=== PATIENT | female | born 1990 | race Caucasian/White ===

== ENCOUNTER 2019-09-03 15:47 | Inpatient (IN) | payer MEDICAID ==
[~2019-09-03] VITALS: Ht 167.6 cm; Wt 136.4 kg
[~2019-09-03 15:47] MED LIST: DOCU-131 PO; FERR325T18 PO; IBUP-1223 PO; OXYC-302 PO; PREN1TAB56 PO
[2019-09-10 09:26] VITALS: BP 114/75
[2019-09-10] MEDS ORDERED: METOCLOPRAMIDE 5 MG/ML, 2ML IV ONE (09:30)
[2019-09-10] MEDS ORDERED: SODIUM CITRATE/CITRIC ACID 30 ML UDC PO ONE (09:30)
[2019-09-10] MEDS ORDERED: LACTATED RINGERS 1,000 ML IVBOLUS ONE (09:30)
[2019-09-10 09:38] LABS: BASOPHILS # (AUTO) 0.03 x10^3/uL (0-0.1); BASOPHILS % (AUTO) 0 % (0-1); EOSINOPHILS # (AUTO) 0.04 x10^3/uL (0-0.4); EOSINOPHILS % (AUTO) 0 % (1-7); LYMPHOCYTES # (AUTO) 2.35 x10^3/uL (1-3.4); LYMPHOCYTES % (AUTO) 21 % (22-44); MD NO; MEAN CORPUSCULAR HEMOGLOBIN 29.6 pg (27.0-34.8); MEAN CORPUSCULAR HGB CONC 33.1 g/dL (32.4-35.8); MEAN CORPUSCULAR VOLUME 89.2 fL (80-100); MEAN PLATELET VOLUME 8.8 fL (7.4-10.4); MONOCYTES # (AUTO) 0.67 x10^3/uL (0.2-0.8); MONOCYTES % (AUTO) 6 % (2-9); NEUTROPHILS # (AUTO) 8.39 x10^3/uL (1.8-6.8); NEUTROPHILS % (AUTO) 73 % (42-75); PLATELET COUNT 225 x10^3/uL (130-400); RED BLOOD COUNT 4.31 x10^6/uL (3.82-5.3); RED CELL DISTRIBUTION WIDTH 16.2 % (9.6-15.2)
[2019-09-10] MEDS ORDERED: DOXY1TAB3 PO (10:02)
[2019-09-10] MEDS ORDERED: ACET325C6 PO (10:02)
[2019-09-10] MEDS ORDERED: morphine SULFATE/PF 0.5 MG/ML, 10ML ONE (10:03)
[2019-09-10] MEDS: LACTATED RINGERS 1,000 ML IV SCH ×5 (10:06→21:21)
[2019-09-10] MEDS ORDERED: EPINEPHRINE 1 MG/ML, 1ML ONE (10:12)
[2019-09-10] MEDS ORDERED: METOCLOPRAMIDE 5 MG/ML, 2ML ONE (10:16)
[2019-09-10] MEDS ORDERED: NEWBORN KIT ONE (10:16)
[2019-09-10] MEDS ORDERED: SODIUM CITRATE/CITRIC ACID 30 ML UDC ONE (10:16)
[2019-09-10] MEDS ORDERED: OXYTOCIN 30U/ 0.9% NaCL 500ML 500 ML ONE (10:16)
[2019-09-10] MEDS ORDERED: MIDAZOLAM 1 MG/ML, 2ML ONE (11:12)
[2019-09-10] MEDS ORDERED: PHENYLEPHRINE 10 MG/ML ONE (11:13)
[2019-09-10] MEDS ORDERED: OXYTOCIN 10 UNITS/ML, 1ML ONE (11:13)
[2019-09-10] MEDS ORDERED: CEFAZOLIN 1,000 MG ONE ×2 (11:13→11:17)
[2019-09-10] MEDS ORDERED: ONDANSETRON 2MG/ML, 2ML ONE ×2 (11:13→14:25)
[2019-09-10] MEDS ORDERED: WATER-INJECTION,STERILE 10 ML IV ONE (11:13)
[2019-09-10] MEDS ORDERED: EPHEDRINE 50 MG/ML, 1ML ONE (11:13)
[2019-09-10] MEDS ORDERED: MEPERIDINE/PF 50 MG/ML ONE (11:40)
[2019-09-10] MEDS ORDERED: LACTATED RINGERS 1,000 ML IV SCH (12:17)
[2019-09-10] MEDS ORDERED: OXYcodone 5 MG/5 ML ORAL.SOL UDC ONE (12:26)
[2019-09-10] MEDS ORDERED: KETOROLAC 30 MG/1 ML ONE (12:26)
[2019-09-10] MEDS ORDERED: TRANEXAMIC ACID 100 MG/ML, 10ML IV ONE (12:30)
[2019-09-10] MEDS ORDERED: ONDANSETRON 2MG/ML, 2ML IV PRN (12:30)
[2019-09-10] MEDS ORDERED: HYDROmorphone/PF 10 MG/ML, 1ML IVPush PRN (12:30)
[2019-09-10] MEDS ORDERED: KETOROLAC 30 MG/1 ML IVPush PRN (12:30)
[2019-09-10] MEDS ORDERED: METHYLERGONOVINE 0.2 MG/ML IM PRN (12:30)
[2019-09-10] MEDS ORDERED: morphine SULFATE 10 MG/ML, 1ML IVPush PRN (12:30)
[2019-09-10] MEDS ORDERED: OXYcodone IR 5MG TABLET PO PRN (12:30)
[2019-09-10] MEDS ORDERED: OXYcodone/APAP 5/325MG TABLET PO PRN (12:30)
[2019-09-10] MEDS ORDERED: CALCIUM CARBONATE 500 MG TAB.CHEW PO PRN (12:30)
[2019-09-10] MEDS ORDERED: NALOXONE 0.4 MG/ML, 1ML IVPush PRN (12:30)
[2019-09-10] MEDS ORDERED: IBUPROFEN 800 MG TABLET PO PRN (12:30)
[2019-09-10] MEDS ORDERED: ACETAMINOPHEN 325 MG TABLET PO PRN ×2 (12:30)
[2019-09-10] MEDS ORDERED: DIPHENHYDRAMINE 50 MG/ML, 1ML IVPush PRN (12:30)
[2019-09-10] MEDS: KETOROLAC 30 MG/1 ML IV SCH ×3 (12:34→23:54)
[2019-09-10] MEDS: OXYTOCIN 30U/ 0.9% NaCL 500ML 500 ML IV SCH ×3 (12:44→22:43)
[2019-09-10] MEDS ORDERED: MISOPROSTOL 200 MCG TABLET ONE (12:52)
[2019-09-10] MEDS ORDERED: MISOPROSTOL 200 MCG TABLET PR ONE (13:00)
[2019-09-10] MEDS ORDERED: OXYcodone 5 MG/5 ML ORAL.SOL UDC PO PRN ×2 (13:00)
[2019-09-10] MEDS ORDERED: HYDROmorphone 2 MG/ML, 1ML ONE ×2 (13:02→14:27)
[2019-09-10] MEDS ORDERED: HYDROmorphone 1 MG/ML, 1ML INJ IV ONE (13:30)
[2019-09-10] MEDS ORDERED: METHYLERGONOVINE 0.2 MG/ML IM ONE (13:33)
[2019-09-10] MEDS ORDERED: TRANEXAMIC ACID 100 MG/ML, 10ML ONE (13:34)
[2019-09-10] MEDS ORDERED: CARBOPROST TROMETHAMINE 250 MCG/ML, 1ML IM ONE ×2 (14:07→14:30)
[2019-09-10] MEDS ORDERED: DIPHENHYDRAMINE 50 MG/ML, 1ML ONE (14:25)
[2019-09-10 14:26] LABS: BASOPHILS # (AUTO) 0.04 x10^3/uL (0-0.1); BASOPHILS % (AUTO) 0 % (0-1); EOSINOPHILS # (AUTO) 0.01 x10^3/uL (0-0.4); EOSINOPHILS % (AUTO) 0 % (1-7); LYMPHOCYTES # (AUTO) 1.61 x10^3/uL (1-3.4); LYMPHOCYTES % (AUTO) 13 % (22-44); MD NO; MEAN CORPUSCULAR HEMOGLOBIN 29.3 pg (27.0-34.8); MEAN CORPUSCULAR HGB CONC 32.9 g/dL (32.4-35.8); MEAN CORPUSCULAR VOLUME 89.2 fL (80-100); MEAN PLATELET VOLUME 8.2 fL (7.4-10.4); MONOCYTES # (AUTO) 0.56 x10^3/uL (0.2-0.8); MONOCYTES % (AUTO) 5 % (2-9); NEUTROPHILS # (AUTO) 9.77 x10^3/uL (1.8-6.8); NEUTROPHILS % (AUTO) 82 % (42-75); PLATELET COUNT 198 x10^3/uL (130-400); RED BLOOD COUNT 3.96 x10^6/uL (3.82-5.3)
[2019-09-10] MEDS ORDERED: DIPHENHYDRAMINE 50 MG/ML, 1ML IVPush ONE (14:30)
[2019-09-10] MEDS ORDERED: ONDANSETRON 2MG/ML, 2ML IVPush ONE (14:30)
[2019-09-10] MEDS: HYDROmorphone 1 MG/ML, 1ML INJ IV PRN ×2 (14:35→14:46)
[2019-09-10 15:14] LABS: INTERNATIONAL NORMALIZED RATIO 0.98 (0.93-1.1); PROTHROMBIN TIME 10.3 Seconds (9.6-11.5)
[2019-09-10 17:00] VITALS: BP 116/51
[2019-09-10] MEDS: OXYcodone/APAP 5/325MG TABLET PO PRN ×2 (17:55→22:09)
[2019-09-10 19:05] VITALS: BP 116/76
[2019-09-10 19:33] LABS: BASOPHILS # (AUTO) 0.05 x10^3/uL (0-0.1); BASOPHILS % (AUTO) 0 % (0-1); EOSINOPHILS % (AUTO) 2 % (1-7); LYMPHOCYTES % (AUTO) 16 % (22-44); MD NO; MEAN CORPUSCULAR HEMOGLOBIN 30.1 pg (27.0-34.8); MEAN CORPUSCULAR HGB CONC 33.5 g/dL (32.4-35.8); MEAN CORPUSCULAR VOLUME 89.9 fL (80-100); MEAN PLATELET VOLUME 8.6 fL (7.4-10.4); MONOCYTES # (AUTO) 0.71 x10^3/uL (0.2-0.8); MONOCYTES % (AUTO) 6 % (2-9); NEUTROPHILS # (AUTO) 8.86 x10^3/uL (1.8-6.8); NEUTROPHILS % (AUTO) 76 % (42-75); PLATELET COUNT 187 x10^3/uL (130-400); RED BLOOD COUNT 3.65 x10^6/uL (3.82-5.3); RED CELL DISTRIBUTION WIDTH 16.4 % (9.6-15.2)
[2019-09-10] MEDS ORDERED: DIPH,PERTUSS(ACELL),TET VAC/PF NC IM-VACC ONE (22:30)
[2019-09-10 23:39] VITALS: BP 91/58
[2019-09-11] MEDS: OXYcodone/APAP 5/325MG TABLET PO PRN ×5 (01:42→21:15)
[2019-09-11 05:00] VITALS: BP 96/65
[2019-09-11] MEDS: KETOROLAC 30 MG/1 ML IV SCH ×3 (05:41→19:45)
[2019-09-11 07:30] VITALS: BP 101/69
[2019-09-11] MEDS: DOCUSATE 100 MG CAPSULE PO PRN ×2 (08:02→19:46)
[2019-09-11] MEDS: PRENATAL VIT/IRON/FA 1 EACH TABLET PO SCH (08:02)
[2019-09-11] MEDS: SIMETHICONE 80 MG CHEW TAB PO PRN ×3 (08:02→19:45)
[2019-09-11 19:45] VITALS: BP 106/71
[2019-09-12] MEDS: OXYcodone/APAP 5/325MG TABLET PO PRN ×2 (01:22→12:42)
[2019-09-12] MEDS: KETOROLAC 30 MG/1 ML IV SCH ×2 (01:22→07:32)
[2019-09-12] MEDS: SIMETHICONE 80 MG CHEW TAB PO PRN (01:22)
[2019-09-12] MEDS: LACTATED RINGERS 1,000 ML IV SCH ×2 (04:17→12:17)
[2019-09-12] MEDS: OXYTOCIN 30U/ 0.9% NaCL 500ML 500 ML IV SCH ×2 (04:17→14:17)
[2019-09-12 07:30] VITALS: BP 106/72
[2019-09-12] MEDS: DOCUSATE 100 MG CAPSULE PO PRN (07:32)
[2019-09-12] MEDS: PRENATAL VIT/IRON/FA 1 EACH TABLET PO SCH (07:32)
[2019-09-12] MEDS ORDERED: IBUP-1223 PO (13:29)
[2019-09-12] MEDS ORDERED: OXYC-302 PO (13:29)
== END 2019-09-12 15:17 | disposition home or self-care (01) | DRG 540 ==
LOC: LDIP 09-10 08:44 → 2NW 09-10 15:32
PROVIDERS: ADMIT Obstetrics & Gynecology; ATTEND Obstetrics & Gynecology
PROC: 10D00Z1 Extraction of Products of Conception, Low, Open Approach (ICD-10-PCS; principal; 2019-09-10)
DX: O34.211 Maternal care for low transverse scar from previous cesarean delivery (principal); E66.01 Morbid (severe) obesity due to excess calories; Z37.0 Single live birth; O48.0 Post-term pregnancy; O77.0 Labor and delivery complicated by meconium in amniotic fluid; O99.214 Obesity complicating childbirth; Z3A.41 41 weeks gestation of pregnancy; Z91.048 Other nonmedicinal substance allergy status
CPT/HCPCS: 36415; 85025; 85384; 85610; 85730; 86850; 86900; 90715; G0378; J0171; J0690; J1170; J1885; J2175; J2250; J2274; J2405; J1200; J2210; J2370; J2590; J2765; J7120

== ENCOUNTER 2021-03-08 06:14 | Inpatient (IN) | payer MEDICAID ==
[~2021-03-08] VITALS: Ht 167.6 cm; Wt 150.0 kg
[~2021-03-08 06:14] MED LIST changes: +ACET325C6 PO; +DOXY1TAB3 PO; -OXYC-302 PO; +OXYC1TAB14 PO
[2021-03-10] MEDS ORDERED: NEWBORN KIT ONE (10:59)
[2021-03-10] MEDS ORDERED: LACTATED RINGERS 1,000 ML IVBOLUS ONE ×2 (11:00→15:00)
[2021-03-10] MEDS ORDERED: METOCLOPRAMIDE 5 MG/ML, 2ML IV ONE (11:00)
[2021-03-10] MEDS ORDERED: SODIUM CITRATE/CITRIC ACID 30 ML UDC PO ONE (11:00)
[2021-03-10] MEDS ORDERED: SODIUM CITRATE/CITRIC ACID 15 ML UDC ONE (11:08)
[2021-03-10] MEDS ORDERED: OXYTOCIN 30U/ 0.9% NaCL 500ML 500 ML ONE (11:08)
[2021-03-10] MEDS ORDERED: METOCLOPRAMIDE 5 MG/ML, 2ML ONE (11:08)
[2021-03-10] MEDS ORDERED: HYDR50CA PO (11:20)
[2021-03-10] MEDS ORDERED: ALBUTEROL SULFATE 2.5 MG/3 ML NPPB PRN (11:30)
[2021-03-10] MEDS ORDERED: ONDANSETRON 2MG/ML, 2ML IVPush PRN (11:30)
[2021-03-10] MEDS ORDERED: FENTANYL PF 100 MCG/2ML IV PRN (11:30)
[2021-03-10] MEDS ORDERED: ACETAMINOPHEN 325 MG TABLET PO PRN (11:30)
[2021-03-10] MEDS ORDERED: OXYcodone 5 MG/5 ML ORAL.SOL UDC PO PRN ×2 (11:30→17:00)
[2021-03-10] MEDS ORDERED: morphine SULFATE 10 MG/ML, 1ML IVPush PRN (11:30)
[2021-03-10] MEDS ORDERED: PROMETHAZINE 25 MG/ML, 1ML IVPush PRN (11:30)
[2021-03-10] MEDS ORDERED: MEPERIDINE/PF 25MG/0.5ML IVPush PRN (11:30)
[2021-03-10] MEDS ORDERED: EPHEDRINE 50 MG/ML, 1ML IVPush PRN (11:30)
[2021-03-10 11:36] VITALS: BP 119/76
[2021-03-10 11:37] LABS: BASOPHILS % (AUTO) 1 % (0-1); EOSINOPHILS % (AUTO) 0 % (1-7); LYMPHOCYTES % (AUTO) 21 % (22-44); MEAN CORPUSCULAR HEMOGLOBIN 29.2 pg (27.0-34.8); MEAN CORPUSCULAR HGB CONC 32.9 g/dL (32.4-35.8); MONOCYTES % (AUTO) 6 % (2-9); NEUTROPHILS % (AUTO) 72 % (42-75); PLATELET COUNT 224 x10^3/uL (130-400); RED BLOOD COUNT 4.01 x10^6/uL (3.82-5.3); RED CELL DISTRIBUTION WIDTH 16.1 % (9.6-15.2)
[2021-03-10 11:38] LABS: MD NO
[2021-03-10] MEDS ORDERED: MISOPROSTOL 200 MCG TABLET PR ONE (13:00)
[2021-03-10] MEDS: LACTATED RINGERS 1,000 ML IV SCH ×3 (15:00→23:00)
[2021-03-10] MEDS ORDERED: METHYLERGONOVINE 0.2 MG/ML IM PRN (15:00)
[2021-03-10] MEDS ORDERED: ONDANSETRON 2MG/ML, 2ML IV PRN (15:00)
[2021-03-10] MEDS ORDERED: morphine SULFATE 10 MG/ML, 1ML IM PRN (15:00)
[2021-03-10] MEDS ORDERED: LORazepam 2 MG/ML, 1ML IVPush PRN ×2 (15:30→16:00)
[2021-03-10] MEDS ORDERED: KETOROLAC 30 MG/1 ML ONE (15:38)
[2021-03-10] MEDS ORDERED: KETOROLAC 30 MG/1 ML IVPush SCH (16:00)
[2021-03-10] MEDS ORDERED: KETOROLAC 30 MG/1 ML IVPush ONE (16:30)
[2021-03-10 16:55] VITALS: BP 127/89
[2021-03-10] MEDS: OXYTOCIN 30U/ 0.9% NaCL 500ML 500 ML IV SCH (16:59)
[2021-03-10] MEDS: OXYcodone IR 5MG TABLET PO PRN ×2 (17:39→21:01)
[2021-03-10] MEDS: ACETAMINOPHEN 325 MG TABLET PO PRN ×2 (17:39→21:01)
[2021-03-10] MEDS ORDERED: DIAZEPAM 5 MG/ML, 2ML IV PRN (18:30)
[2021-03-10 19:41] VITALS: BP 114/81
[2021-03-10] MEDS: DOCUSATE 100 MG CAPSULE PO PRN (21:01)
[2021-03-10] MEDS: SIMETHICONE 80 MG CHEW TAB PO PRN (21:01)
[2021-03-10 21:37] LABS: BASOPHILS % (AUTO) 0 % (0-1); EOSINOPHILS % (AUTO) 0 % (1-7); LYMPHOCYTES % (AUTO) 17 % (22-44); MEAN CORPUSCULAR HEMOGLOBIN 30.1 pg (27.0-34.8); MEAN CORPUSCULAR HGB CONC 33.8 g/dL (32.4-35.8); MEAN PLATELET VOLUME 8.7 fL (7.4-10.4); MONOCYTES % (AUTO) 7 % (2-9); NEUTROPHILS % (AUTO) 76 % (42-75); PLATELET COUNT 197 x10^3/uL (130-400); RED BLOOD COUNT 2.83 x10^6/uL (3.82-5.3); RED CELL DISTRIBUTION WIDTH 15.8 % (9.6-15.2)
[2021-03-10 21:44] LABS: MD NO
[2021-03-10] MEDS: KETOROLAC 30 MG/1 ML IVPush SCH (21:51)
[2021-03-11] MEDS: LACTATED RINGERS 1,000 ML IV SCH ×6 (01:00→23:00)
[2021-03-11] MEDS: OXYTOCIN 30U/ 0.9% NaCL 500ML 500 ML IV SCH ×3 (01:00→21:00)
[2021-03-11 01:05] VITALS: BP 110/73
[2021-03-11] MEDS: OXYcodone IR 5MG TABLET PO PRN (01:08)
[2021-03-11] MEDS: ACETAMINOPHEN 325 MG TABLET PO PRN (01:08)
[2021-03-11] MEDS: KETOROLAC 30 MG/1 ML IVPush SCH ×2 (04:09→09:52)
[2021-03-11] MEDS: SIMETHICONE 80 MG CHEW TAB PO PRN ×3 (04:09→16:11)
[2021-03-11 04:10] VITALS: BP 122/77
[2021-03-11] MEDS: OXYcodone/APAP 5/325MG TABLET PO PRN ×4 (05:38→19:44)
[2021-03-11] MEDS ORDERED: MISOPROSTOL 200 MCG TABLET ONE (07:09)
[2021-03-11 07:13] VITALS: BP 109/73
[2021-03-11] MEDS: DOCUSATE 100 MG CAPSULE PO PRN ×2 (09:52→19:43)
[2021-03-11] MEDS: PRENATAL VIT/IRON/FA 1 EACH TABLET PO SCH (09:52)
[2021-03-11] MEDS: IBUPROFEN 800 MG TABLET PO PRN (16:11)
[2021-03-11 19:15] VITALS: BP 115/77
[2021-03-11] MEDS ORDERED: LORazepam 0.5MG TABLET PO ONE (21:00)
[2021-03-12] MEDS: SIMETHICONE 80 MG CHEW TAB PO PRN ×3 (00:07→17:04)
[2021-03-12] MEDS: IBUPROFEN 800 MG TABLET PO PRN ×3 (00:07→17:04)
[2021-03-12 04:35] LABS: BASOPHILS % (AUTO) 0 % (0-1); EOSINOPHILS % (AUTO) 1 % (1-7); LYMPHOCYTES % (AUTO) 20 % (22-44); MEAN CORPUSCULAR HGB CONC 33.3 g/dL (32.4-35.8); MEAN PLATELET VOLUME 8.4 fL (7.4-10.4); MONOCYTES % (AUTO) 7 % (2-9); NEUTROPHILS % (AUTO) 72 % (42-75); PLATELET COUNT 180 x10^3/uL (130-400); RED BLOOD COUNT 2.36 x10^6/uL (3.82-5.3); RED CELL DISTRIBUTION WIDTH 15.9 % (9.6-15.2)
[2021-03-12 04:44] LABS: MD NO
[2021-03-12 04:50] VITALS: BP 114/74
[2021-03-12] MEDS: OXYTOCIN 30U/ 0.9% NaCL 500ML 500 ML IV SCH ×2 (07:00→17:00)
[2021-03-12] MEDS: LACTATED RINGERS 1,000 ML IV SCH ×4 (07:00→17:00)
[2021-03-12 07:30] VITALS: BP 127/82
[2021-03-12] MEDS: DOCUSATE 100 MG CAPSULE PO PRN (08:03)
[2021-03-12] MEDS: PRENATAL VIT/IRON/FA 1 EACH TABLET PO SCH (08:03)
[2021-03-12] MEDS: OXYcodone/APAP 5/325MG TABLET PO PRN ×3 (08:05→18:46)
[2021-03-12 16:00] VITALS: BP 138/80
[2021-03-12] MEDS ORDERED: PREN1TAB60 PO (18:37)
[2021-03-12] MEDS ORDERED: IBUP-1222 PO (18:40)
[2021-03-12] MEDS ORDERED: DOCU-131 PO (18:40)
[2021-03-12] MEDS ORDERED: FERR324T5 PO (18:41)
== END 2021-03-12 19:00 | disposition home or self-care (01) | DRG 540 ==
LOC: LDIP 03-10 10:47 → 2NW 03-10 16:41
PROVIDERS: ADMIT Obstetrics & Gynecology; ATTEND Obstetrics & Gynecology
PROC: 10D00Z1 Extraction of Products of Conception, Low, Open Approach (ICD-10-PCS; principal; 2021-03-10)
DX: O32.2XX0 Maternal care for transverse and oblique lie, not applicable or unspecified (principal); E66.01 Morbid (severe) obesity due to excess calories; O34.211 Maternal care for low transverse scar from previous cesarean delivery; Z37.0 Single live birth; Z3A.40 40 weeks gestation of pregnancy; O99.214 Obesity complicating childbirth; Z91.048 Other nonmedicinal substance allergy status; Z20.822 Contact with and (suspected) exposure to COVID-19; O90.81 Anemia of the puerperium; D64.9 Anemia, unspecified
CPT/HCPCS: 36415; 85025; 86592; 86762; 86850; 86900; 86923; 87340; 87635; 87806; G0378; J1885; G0475; J2060; J2270; J2590; J2765; J7120